=== PATIENT | female | born 1945 | race African-American/Black ===

== ENCOUNTER 2019-08-03 09:36 | Emergency (ER) | payer MEDICARE, OTHER ==
[~2019-08-03] VITALS: Ht 165.1 cm; Wt 82.0 kg
[~2019-08-03 09:36] MED LIST: HTCZ; LOPRESSOR
[2019-08-03] MEDS ORDERED: DIPHENHYDRAMINE 50MG/ML VIAL IV ONE (12:30)
[2019-08-03] MEDS ORDERED: FAMOTIDINE 20MG/2ML VIAL IV ONE (12:30)
[2019-08-03] MEDS ORDERED: SODIUM CHLORIDE 0.9% 1,000 ML IV SCH (12:30)
[2019-08-03] MEDS ORDERED: METHYLPREDNISOLONE SOD SUCC 125 MG/2 ML VIAL IV ONE (12:30)
[2019-08-03 13:02] LABS: INR 1.1
[2019-08-03 13:03] LABS: CHLORIDE 102 mEq/L (98-107)
[2019-08-03 13:04] LABS: BASOPHILS % 0.3 % (0.0-2.0); EOSINOPHILS % 1.2 % (0.0-5.0); HEMATOCRIT. 40.4 % (36.0-48.0); HEMOGLOBIN. 13.6 g/dL (12.0-16.0); LYMPHOCYTES % 18.5 % (20.0-50.0); MEAN CORPUSCULAR HEMOGLOBIN 31.5 pg (28.0-32.0); MEAN CORPUSCULAR VOLUME 93.6 fL (81.0-99.0); MONOCYTES % 5.2 % (2.0-8.0); NEUTROPHILS % 74.8 % (40.0-76.0); PLATELET 339 x1000/uL (130-400); RED BLOOD CELL COUNT 4.31 mill/uL (4.2-5.4); RED CELL DISTRIBUTION WIDTH 13.1 % (11.6-14.6)
[2019-08-03 15:56] VITALS: BP 127/71
== END 2019-08-03 16:26 | disposition short-term general hospital (02) ==
LOC: ER 09:36
DX: T78.40XA Allergy, unspecified, initial encounter (principal); N17.9 Acute kidney failure, unspecified; I10 Essential (primary) hypertension; H40.9 Unspecified glaucoma; Z98.890 Other specified postprocedural states; X58.XXXA Exposure to other specified factors, initial encounter
CPT/HCPCS: 36415; 80053; 85025; 85610; 93005; 96374; 96375; 99285; J1200; J2930; J3490

== ENCOUNTER 2022-06-29 14:52 | Emergency (ER) | payer OTHER ==
[~2022-06-29] VITALS: Ht 167.6 cm; Wt 78.0 kg
[2022-06-29] MEDS ORDERED: AMLODIPINE 5MG TABLET PO ONE ×2 (19:30→21:30)
[2022-06-29 20:54] LABS: BASOPHILS % 0.7 % (0.0-2.0); EOSINOPHILS % 2.5 % (0.0-5.0); HEMATOCRIT. 38.3 % (36.0-48.0); HEMOGLOBIN. 12.7 g/dL (12.0-16.0); LYMPHOCYTES % 44.7 % (20.0-50.0); MEAN CORPUSCULAR HEMOGLOBIN 31.6 pg (28.0-32.0); MEAN CORPUSCULAR VOLUME 95.3 fL (81.0-99.0); MEAN PLATELET VOLUME 7.5 fl (7.4-10.4); MONOCYTES % 8.9 % (2.0-8.0); NEUTROPHILS % 43.2 % (40.0-76.0); PLATELET 300 x1000/uL (130-400); RED BLOOD CELL COUNT 4.02 mill/uL (4.2-5.4); RED CELL DISTRIBUTION WIDTH 13.3 % (11.6-14.6)
[2022-06-29 21:01] LABS: CHLORIDE 104 mEq/L (98-107)
[2022-06-29 21:09] VITALS: BP 189/67
[2022-06-29] MEDS ORDERED: AMLO5TAB4 MT (21:31)
== END 2022-06-29 21:41 | disposition home or self-care (01) ==
LOC: ER 14:52
DX: I16.0 Hypertensive urgency (principal)
CPT/HCPCS: 36415; 80053; 85025; 99283